=== PATIENT | female | born 1955 | race Caucasian/White ===

== ENCOUNTER 2019-03-17 13:48 | Inpatient (IN) ==
[2019-03-17] MEDS ORDERED: Ipratropium/Albuterol Neb 3 ML ONE ×2 (14:11→14:13)
[2019-03-17] MEDS ORDERED: Ipratropium/Albuterol Neb 3 ML IH ONE (14:11)
[2019-03-17] MEDS ORDERED: methylPREDNISolone 125 MG/2 ML VIAL IVP ONE (14:11)
[2019-03-17] MEDS ORDERED: Isovue-370 500 ML BOTTLE IVP ONE (14:11)
--- NOTE | 2019-03-17 14:22 | Emergency Department Note ---
Disposition Clinical Impression: Hypokalemia, Hypomagnesemia, Acute exacerbation of chronic obstructive airways disease Disposition: Admitted As Inpatient Condition: Fair Referrals: Remedios Sullivan [Primary Care Provider] - Forms: ED Satisfaction Letter Time of Disposition: 18:46 SOB HPI - General Chief Complaint: ED Shortness of Breath/Dyspnea Stated Complaint: VIRI Time Seen by Provider: 03/17/19 14:05 Source: patient Mode of arrival: ambulatory Limitations: no limitations Nursing Notes Reviewed: Yes Vital Signs Reviewed: Yes - History of Present Illness 64-year-old female presented to the emergency department with shortness of breath. She has no chest pain. Says shortness breath been going on for approximately 5 days. Was seen by her primary care doctor in approximately 5 days ago started on clarithromycin and 7 day course of 60 mg prednisone. Says she has take every pill as well as she has nebulous her home she is been doing about every 6-8 hours. Says she continues neck it better she is not noted any fears of difficulty breathing is getting worse. She does have history of COPD has never had be intubated. She has no history of cardiac problems. She has never had any blood clots further been no recent surgeries or unilateral leg swelling no long car rides or plane rides. She said she was at one time diagnosed with pulmonary nodules but they said they are not cancer is otherwise has no cancer history. No nausea or vomiting headache blurry vision or any other complete a this time. She has no abdominal pain - Related Data Allergies Allergy/AdvReac Type Severity Reaction Status Date / Time hydrocodone Allergy Mild Rash/Itchin Verified 03/17/19 15:14 g All systems ED: reviewed and negative except as stated. Review of Systems: As Per HPI Past Medical History - Past Medical History Attestation: Yes The following information was validated with the patient. Source: patient Medical history: Reports: COPD Surgical history: Reports: cholecystectomy, orthopedic, other (Kyaw placement in her left arm), other (Tubal ligation) Psychiatric history: Reports: no psych history GUIDANCE DIRECTOR history: Reports: bilateral tubal ligation - Social History Smoking Status: Current every day smoker Smokeless Tobacco Status: No Alcohol use: Reports: none Drug use: Reports: none Physical Exam - General Limitations: no limitations General appearance: alert, in no apparent distress - Head Head exam: atraumatic, normocephalic, normal inspection - Eye Eye exam: Present: normal appearance, PERRL, EOMI - ENT ENT exam: normal exam, normal oropharynx, mucous membranes moist - Neck Neck exam: Present: normal inspection, full ROM, trachea midline - Chest Chest inspection: Present: normal inspection, symmetric chest wall rise - Respiratory Respiratory exam: Present: respiratory distress (Mild), wheezes (Expiratory bilaterally), accessory muscle use. Absent: stridor, prolonged expiratory phase - Cardiovascular Cardiovascular exam: Present: regular rate, normal rhythm, normal heart sounds - Abdominal Exam Abdominal exam: Present: soft, Non-Tender, normal bowel sounds. Absent: tenderness, distention, guarding, rebound, rigidity - Extremities Exam Extremities exam: Present: normal inspection, full ROM. Absent: tenderness, pedal edema - Neurological Exam Neurological exam: Present: alert, oriented X3 - Skin Skin exam: Present: warm, dry, intact, normal color Course Course Narrative: Patient does have a story wheezes on exam. We will give patient triple DuoNeb treatment as well as give her dose of Solu-Medrol here. We will get basic labs and imaging CBC BMP troponin lactate. We will get chest x-ray. we will get a CT angiogram of chest like cannot rule out pulmonary and was not this time due to her having continued shortness of breath still after receiving 5 days of clarithromycin 5 days of steroids. She has of history COPD I do think this most likely is a COPD exacerbation has failed outpatient treatment. Patient most likely will be admitted for further evaluation. Vital Signs Temperature 98.6 F 03/17/19 13:56 Pulse Rate 70 03/17/19 13:56 Respiratory Rate 26 03/17/19 13:56 Blood Pressure 159/78 03/17/19 13:56 O2 Sat by Pulse Oximetry 95 03/17/19 13:56 Temperature 98.6 F 03/17/19 15:11 Pulse Rate 73 03/17/19 15:11 Respiratory Rate 18 03/17/19 15:11 Blood Pressure 131/99 03/17/19 15:11 O2 Sat by Pulse Oximetry 98 03/17/19 15:11 Oxygen Delivery Oxygen Delivery Nasal Cannula Shortness of Breath/Dyspnea - MDM Narrative Medical decision making narrative: 64-year-old female presents here shortness of breath. Did give her DuoNeb treatment she arrived. Also gave her Solu-Medrol. She has been on clarithromycin for 5 days and taken every single pill and not missed any doses. She has been on's also on 5 days of steroids with no relief. Labs came back showing a hypokalemia EKG had no acute changes. There is no signs of T-wave changes. I did give patient 60 mEq of potassium oral and also ordered a 40 mEq K rider as well. This could be artificially low as they did draw blood directly after giving the albuterol treatments. Patient also most likely is a low magnesium so we will give her to grams of magnesium as well. Patient had elevated lactic acidosis as well as a leukocytosis. Think a leukocytosis most likely secondary to the steroid treatment she is arty been on antibiotics. Patient is never had a fever or been tachycardic while here. I did a CT angiogram chest had no acute findings. Chest x-ray also showed no signs of pneumonia. I spoke with the hospitalist and we agree that no further antibody treatment is needed at this time she is arty done clarithromycin and even the white count is elevated most likely secondary to steroids and not secondary to a n infection. Patient will be admitted to the hospitalist. They want me to first get the potassium mildly more elevated to around 3 and they are okay to accept the patient that time. Repeat potassium was 2.2. I spoke with the double head machine operator Dr. Ortez who likes her plan of treatment potassium said they will continue to follow it. She again has no EKG changes. Lactate was continually elevated so ordered a second liter of fluids. Patient is stable at this time. Spoke with the hospitalist Dr. Gallardo who agreed to admit the patient to their service. Patient's admitted in stable condition Chest X-Ray 03/17/19 14:11 IMPRESSION: Nonspecific mild left lower lobe subsegmental opacity which may represent atelectasis. No finding to suggest pneumonia. D/ / 03/17/2019 14:55:38 Antoine Ann MD / yunior Interpreting Provider: Antoine Ann MD Chest CTA 03/17/19 14:12 IMPRESSION: 1. No evidence of pulmonary embolism 2. Bibasilar atelectasis 3. Old granulomatous disease D/ / Ger Gage MD / Ger Gage MD Interpreting Provider: Ger Gage MD - Medical Records Medical records reviewed: Yes I reviewed the patient's medical records. - Lab Data Lab results reviewed: Yes I reviewed the patient's lab results. Result diagrams: 03/17/19 14:24 03/17/19 16:51 Lab Results 03/17/19 03/17/19 03/17/19 Range/Units 14:24 14:24 14:24 WBC 24.0 H (4.3-11.1) K/mcL RBC 4.72 (3.82-4.97) M/mcL Hgb 14.0 (11.5-15.4) g/dL Hct 41.0 (35.3-44.9) % MCV 86.9 (83.0-100.0) fL MCH 29.7 (28.0-33.3) pg MCHC 34.1 (31.6-35.5) g/dL RDW 14.9 H (11.5-14.5) % Plt Count 422 H (140-400) K/mcL MPV 10.6 (9.4-12.4) fL Immature Gran % Test Not Performed Seg Neutrophils % 55.0 % Band Neutrophils % 3.0 (0-4) % Lymphocytes % 37.0 % Monocytes % 4.0 % Eosinophils % Test Not Performed Basophils % Test Not Performed Metamyelocytes % 1.0 H (0) % Neutrophils # 13.9 H (1.6-8.9) K/mcL Lymphocytes # 8.9 H (0.6-4.6) K/mcL Monocytes # 1.0 (0.0-1.3) K/mcL Eosinophils # Test Not Performed Basophils # Test Not Performed Nucleated RBCs/100 WBC 0.2 H (0) /100 WBC Smudge Cells Present A (Not Present) Platelet Estimate Slight increase H (Normal) Sodium 142 (136-145) mEq/L Potassium 2.0 L* (3.5-5.1) mEq/L Chloride 101 (98-107) mEq/L Carbon Dioxide 29 (23-29) mEq/L BUN 15 (8-23) mg/dL Creatinine 0.82 (0.60-1.20) mg/dL Est GFR ( Amer) > 60 (> 60) Est GFR (Non-Af Amer) > 60 (> 60) BUN/Creatinine Ratio 18 (6-26) Glucose 78 (70-105) mg/dL Calculated Osmolality 294 (280-300) Lactic Acid 3.4 H (0.5-2.2) mmol/L Calcium 8.9 (8.6-10.3) mg/dL Magnesium 1.8 (1.6-2.6) mg/dL Troponin I 0.03 (< 0.04) ng/mL B-Natriuretic Peptide (Less than 100) pg/mL Urine Color (Yellow) Urine Clarity (Clear) Urine pH (5.0-8.0) pH Units Ur Specific Outlook (1.010-1.025) Urine Protein (Neg-Trace) mg/dL Urine Glucose (UA) (Normal) mg/dL Urine Ketones (Negative) mg/dL Urine Blood (Negative) Urine Nitrite (Negative) Urine Bilirubin (Negative) Urine Urobilinogen (Normal) mg/dL Ur Leukocyte Esterase (Negative) Ur Culture Indicated? (NO) 03/17/19 03/17/19 03/17/19 Range/Units 14:24 16:24 16:51 WBC (4.3-11.1) K/mcL RBC (3.82-4.97) M/mcL Hgb (11.5-15.4) g/dL Hct (35.3-44.9) % MCV (83.0-100.0) fL MCH (28.0-33.3) pg MCHC (31.6-35.5) g/dL RDW (11.5-14.5) % Plt Count (140-400) K/mcL MPV (9.4-12.4) fL Immature Gran % Seg Neutrophils % % Band Neutrophils % (0-4) % Lymphocytes % % Monocytes % % Eosinophils % Basophils % Metamyelocytes % (0) % Neutrophils # (1.6-8.9) K/mcL Lymphocytes # (0.6-4.6) K/mcL Monocytes # (0.0-1.3) K/mcL Eosinophils # Basophils # Nucleated RBCs/100 WBC (0) /100 WBC Smudge Cells (Not Present) Platelet Estimate (Normal) Sodium (136-145) mEq/L Potassium 2.2 L* (3.5-5.1) mEq/L Chloride (98-107) mEq/L Carbon Dioxide (23-29) mEq/L BUN (8-23) mg/dL Creatinine (0.60-1.20) mg/dL Est GFR ( Amer) (> 60) Est GFR (Non-Af Amer) (> 60) BUN/Creatinine Ratio (6-26) Glucose (70-105) mg/dL Calculated Osmolality (280-300) Lactic Acid (0.5-2.2) mmol/L Calcium (8.6-10.3) mg/dL Magnesium (1.6-2.6) mg/dL Troponin I (< 0.04) ng/mL B-Natriuretic Peptide 69 (Less than 100) pg/mL Urine Color Yellow (Yellow) Urine Clarity Clear (Clear) Urine pH 6.5 (5.0-8.0) pH Units Ur Specific Outlook > 1.030 H (1.010-1.025) Urine Protein Negative (Neg-Trace) mg/dL Urine Glucose (UA) Normal (Normal) mg/dL Urine Ketones Negative (Negative) mg/dL Urine Blood Negative (Negative) Urine Nitrite Negative (Negative) Urine Bilirubin Negative (Negative) Urine Urobilinogen Normal (Normal) mg/dL Ur Leukocyte Esterase Negative (Negative) Ur Culture Indicated? NO (NO) 03/17/19 Range/Units 18:10 WBC (4.3-11.1) K/mcL RBC (3.82-4.97) M/mcL Hgb (11.5-15.4) g/dL Hct (35.3-44.9) % MCV (83.0-100.0) fL MCH (28.0-33.3) pg MCHC (31.6-35.5) g/dL RDW (11.5-14.5) % Plt Count (140-400) K/mcL MPV (9.4-12.4) fL Immature Gran % Seg Neutrophils % % Band Neutrophils % (0-4) % Lymphocytes % % Monocytes % % Eosinophils % Basophils % Metamyelocytes % (0) % Neutrophils # (1.6-8.9) K/mcL Lymphocytes # (0.6-4.6) K/mcL Monocytes # (0.0-1.3) K/mcL Eosinophils # Basophils # Nucleated RBCs/100 WBC (0) /100 WBC Smudge Cells (Not Present) Platelet Estimate (Normal) Sodium (136-145) mEq/L Potassium (3.5-5.1) mEq/L Chloride (98-107) mEq/L Carbon Dioxide (23-29) mEq/L BUN (8-23) mg/dL Creatinine (0.60-1.20) mg/dL Est GFR ( Amer) (> 60) Est GFR (Non-Af Amer) (> 60) BUN/Creatinine Ratio (6-26) Glucose (70-105) mg/dL Calculated Osmolality (280-300) Lactic Acid 4.6 H* (0.5-2.2) mmol/L Calcium (8.6-10.3) mg/dL Magnesium (1.6-2.6) mg/dL Troponin I (< 0.04) ng/mL B-Natriuretic Peptide (Less than 100) pg/mL Urine Color (Yellow) Urine Clarity (Clear) Urine pH (5.0-8.0) pH Units Ur Specific Outlook (1.010-1.025) Urine Protein (Neg-Trace) mg/dL Urine Glucose (UA) (Normal) mg/dL Urine Ketones (Negative) mg/dL Urine Blood (Negative) Urine Nitrite (Negative) Urine Bilirubin (Negative) Urine Urobilinogen (Normal) mg/dL Ur Leukocyte Esterase (Negative) Ur Culture Indicated? (NO) - Radiology Data Radiology results reviewed: Yes I reviewed the patient's radiology results. - EKG Data EKG attestation: Yes I reviewed and interpreted this EKG. EKG results narrative: EKG done at 1405 review myself and attending shows sinus rhythm at a rate 65, FL 152, QRS 14, QTc 46. Is no acute ST changes no acute T-wave changes no signs of ischemia. There are T-wave depressions in lead 2 and aVF but there is no reciprocal changes. This could just be secondary to old changes. No signs of hypertrophy, heart strain, heart block. No WPW/Brugada/HOCM. No changes based on old EKG done 07/06/14
[2019-03-17 14:47] LABS: Mean Corpuscular HGB Conc 34.1 g/dL (31.6-35.5); Mean Corpuscular Hemoglobin 29.7 pg (28.0-33.3); Mean Corpuscular Volume 86.9 fL (83.0-100.0); Mean Platelet Volume 10.6 fL (9.4-12.4); Nucleated Red Blood Cells 0.2 /100 WBC (0); Platelet Count 422 K/mcL (140-400); Red Blood Count 4.72 M/mcL (3.82-4.97); Red Cell Distribution Width 14.9 % (11.5-14.5)
[2019-03-17] MEDS ORDERED: Ondansetron 4 MG/2 ML VIAL IVP ONE (15:22)
[2019-03-17 15:23] LABS: BUN/Creatinine Ratio 18 (6-26); Blood Urea Nitrogen 15 mg/dL (8-23); Calcium 8.9 mg/dL (8.6-10.3); Carbon Dioxide 29 mEq/L (23-29); Chloride 101 mEq/L (98-107); Glucose 78 mg/dL (70-105); Osmolality,Calculated 294 (280-300); Sodium 142 mEq/L (136-145); eGFR For African Americans > 60 (> 60); eGFR For Non-African Americans > 60 (> 60)
[2019-03-17] MEDS ORDERED: 0.9 % Sodium Chloride 1,000 ML IVC ONE ×2 (15:23→20:32)
[2019-03-17 15:24] LABS: Lymphocytes # 8.9 K/mcL (0.6-4.6); Neutrophils # 13.9 K/mcL (1.6-8.9); Smudge Cells Present (Not Present); Troponin I 0.03 ng/mL (< 0.04)
[2019-03-17] MEDS ORDERED: Potassium Chloride Elixir 20 MEQ/15 ML UDC PO ONE ×2 (15:33→16:14)
[2019-03-17 15:58] LABS: Magnesium 1.8 mg/dL (1.6-2.6)
[2019-03-17 16:38] LABS: Bilirubin,Urine Negative (Negative); Blood,Urine Negative (Negative); Clarity,Urine Clear (Clear); Color,Urine Yellow (Yellow); Glucose,Urine (UA) Normal (Normal); Ketones,Urine Negative (Negative); Leukocyte Esterase,Urine Negative (Negative); Nitrite,Urine Negative (Negative); PH,Urine 6.5 pH Units (5.0-8.0); Protein,Urine Negative (Neg-Trace); Specific Gravity,Urine > 1.030 (1.010-1.025); Urobilinogen,Urine Normal (Normal)
--- NOTE | 2019-03-17 16:57 | Emergency Department Note ---
Disposition Clinical Impression: Hypokalemia, Hypomagnesemia, Acute exacerbation of chronic obstructive airways disease Disposition: Admitted As Inpatient Condition: Fair Time of Disposition: 18:46 General Adult HPI - General Chief complaint: ED Shortness of Breath/Dyspnea Stated complaint: VIRI Time Seen by Provider: 03/17/19 14:05 Source: patient Mode of arrival: ambulatory Limitations: no limitations - History of Present Illness Pain Scale: 6 - Related Data Allergies Allergy/AdvReac Type Severity Reaction Status Date / Time hydrocodone Allergy Mild Rash/Itchin Verified 03/17/19 15:14 g Past Medical History - Past Medical History Medical history: Reports: COPD Surgical history: Reports: cholecystectomy, orthopedic, other (Kyaw placement in her left arm), other (Tubal ligation) Psychiatric history: Reports: no psych history UROLOGIST history: Reports: bilateral tubal ligation - Social History Smoking Status: Current every day smoker Smokeless Tobacco Status: No Alcohol use: Reports: none Drug use: Reports: none Physical Exam - General Limitations: no limitations General appearance: alert, in no apparent distress Course Vital Signs Temperature 98.6 F 03/17/19 13:56 Pulse Rate 70 03/17/19 13:56 Respiratory Rate 26 03/17/19 13:56 Blood Pressure 159/78 03/17/19 13:56 O2 Sat by Pulse Oximetry 95 03/17/19 13:56 Temperature 98.6 F 03/17/19 15:11 Pulse Rate 66 03/17/19 19:01 Respiratory Rate 22 03/17/19 19:01 Blood Pressure 151/79 03/17/19 19:01 O2 Sat by Pulse Oximetry 93 03/17/19 19:01 Oxygen Delivery Oxygen Delivery Room Air Medical Decision Making - Lab Data Result diagrams: 03/17/19 14:24 03/17/19 18:10 Lab Results 03/17/19 03/17/19 03/17/19 Range/Units 14:24 14:24 14:24 WBC 24.0 H (4.3-11.1) K/mcL RBC 4.72 (3.82-4.97) M/mcL Hgb 14.0 (11.5-15.4) g/dL Hct 41.0 (35.3-44.9) % MCV 86.9 (83.0-100.0) fL MCH 29.7 (28.0-33.3) pg MCHC 34.1 (31.6-35.5) g/dL RDW 14.9 H (11.5-14.5) % Plt Count 422 H (140-400) K/mcL MPV 10.6 (9.4-12.4) fL Immature Gran % Test Not Performed Seg Neutrophils % 55.0 % Band Neutrophils % 3.0 (0-4) % Lymphocytes % 37.0 % Monocytes % 4.0 % Eosinophils % Test Not Performed Basophils % Test Not Performed Metamyelocytes % 1.0 H (0) % Neutrophils # 13.9 H (1.6-8.9) K/mcL Lymphocytes # 8.9 H (0.6-4.6) K/mcL Monocytes # 1.0 (0.0-1.3) K/mcL Eosinophils # Test Not Performed Basophils # Test Not Performed Nucleated RBCs/100 WBC 0.2 H (0) /100 WBC Smudge Cells Present A (Not Present) Platelet Estimate Slight increase H (Normal) Sodium 142 (136-145) mEq/L Potassium 2.0 L* (3.5-5.1) mEq/L Chloride 101 (98-107) mEq/L Carbon Dioxide 29 (23-29) mEq/L BUN 15 (8-23) mg/dL Creatinine 0.82 (0.60-1.20) mg/dL Est GFR ( Amer) > 60 (> 60) Est GFR (Non-Af Amer) > 60 (> 60) BUN/Creatinine Ratio 18 (6-26) Glucose 78 (70-105) mg/dL Calculated Osmolality 294 (280-300) Lactic Acid 3.4 H (0.5-2.2) mmol/L Calcium 8.9 (8.6-10.3) mg/dL Magnesium 1.8 (1.6-2.6) mg/dL Troponin I 0.03 (< 0.04) ng/mL B-Natriuretic Peptide (Less than 100) pg/mL Urine Color (Yellow) Urine Clarity (Clear) Urine pH (5.0-8.0) pH Units Ur Specific Starlight (1.010-1.025) Urine Protein (Neg-Trace) mg/dL Urine Glucose (UA) (Normal) mg/dL Urine Ketones (Negative) mg/dL Urine Blood (Negative) Urine Nitrite (Negative) Urine Bilirubin (Negative) Urine Urobilinogen (Normal) mg/dL Ur Leukocyte Esterase (Negative) Ur Culture Indicated? (NO) 03/17/19 03/17/19 03/17/19 Range/Units 14:24 16:24 16:51 WBC (4.3-11.1) K/mcL RBC (3.82-4.97) M/mcL Hgb (11.5-15.4) g/dL Hct (35.3-44.9) % MCV (83.0-100.0) fL MCH (28.0-33.3) pg MCHC (31.6-35.5) g/dL RDW (11.5-14.5) % Plt Count (140-400) K/mcL MPV (9.4-12.4) fL Immature Gran % Seg Neutrophils % % Band Neutrophils % (0-4) % Lymphocytes % % Monocytes % % Eosinophils % Basophils % Metamyelocytes % (0) % Neutrophils # (1.6-8.9) K/mcL Lymphocytes # (0.6-4.6) K/mcL Monocytes # (0.0-1.3) K/mcL Eosinophils # Basophils # Nucleated RBCs/100 WBC (0) /100 WBC Smudge Cells (Not Present) Platelet Estimate (Normal) Sodium (136-145) mEq/L Potassium 2.2 L* (3.5-5.1) mEq/L Chloride (98-107) mEq/L Carbon Dioxide (23-29) mEq/L BUN (8-23) mg/dL Creatinine (0.60-1.20) mg/dL Est GFR ( Amer) (> 60) Est GFR (Non-Af Amer) (> 60) BUN/Creatinine Ratio (6-26) Glucose (70-105) mg/dL Calculated Osmolality (280-300) Lactic Acid (0.5-2.2) mmol/L Calcium (8.6-10.3) mg/dL Magnesium (1.6-2.6) mg/dL Troponin I (< 0.04) ng/mL B-Natriuretic Peptide 69 (Less than 100) pg/mL Urine Color Yellow (Yellow) Urine Clarity Clear (Clear) Urine pH 6.5 (5.0-8.0) pH Units Ur Specific Starlight > 1.030 H (1.010-1.025) Urine Protein Negative (Neg-Trace) mg/dL Urine Glucose (UA) Normal (Normal) mg/dL Urine Ketones Negative (Negative) mg/dL Urine Blood Negative (Negative) Urine Nitrite Negative (Negative) Urine Bilirubin Negative (Negative) Urine Urobilinogen Normal (Normal) mg/dL Ur Leukocyte Esterase Negative (Negative) Ur Culture Indicated? NO (NO) 03/17/19 03/17/19 Range/Units 18:10 18:10 WBC (4.3-11.1) K/mcL RBC (3.82-4.97) M/mcL Hgb (11.5-15.4) g/dL Hct (35.3-44.9) % MCV (83.0-100.0) fL MCH (28.0-33.3) pg MCHC (31.6-35.5) g/dL RDW (11.5-14.5) % Plt Count (140-400) K/mcL MPV (9.4-12.4) fL Immature Gran % Seg Neutrophils % % Band Neutrophils % (0-4) % Lymphocytes % % Monocytes % % Eosinophils % Basophils % Metamyelocytes % (0) % Neutrophils # (1.6-8.9) K/mcL Lymphocytes # (0.6-4.6) K/mcL Monocytes # (0.0-1.3) K/mcL Eosinophils # Basophils # Nucleated RBCs/100 WBC (0) /100 WBC Smudge Cells (Not Present) Platelet Estimate (Normal) Sodium (136-145) mEq/L Potassium 2.5 L* (3.5-5.1) mEq/L Chloride (98-107) mEq/L Carbon Dioxide (23-29) mEq/L BUN (8-23) mg/dL Creatinine (0.60-1.20) mg/dL Est GFR ( Amer) (> 60) Est GFR (Non-Af Amer) (> 60) BUN/Creatinine Ratio (6-26) Glucose (70-105) mg/dL Calculated Osmolality (280-300) Lactic Acid 4.6 H* (0.5-2.2) mmol/L Calcium (8.6-10.3) mg/dL Magnesium (1.6-2.6) mg/dL Troponin I (< 0.04) ng/mL B-Natriuretic Peptide (Less than 100) pg/mL Urine Color (Yellow) Urine Clarity (Clear) Urine pH (5.0-8.0) pH Units Ur Specific Starlight (1.010-1.025) Urine Protein (Neg-Trace) mg/dL Urine Glucose (UA) (Normal) mg/dL Urine Ketones (Negative) mg/dL Urine Blood (Negative) Urine Nitrite (Negative) Urine Bilirubin (Negative) Urine Urobilinogen (Normal) mg/dL Ur Leukocyte Esterase (Negative) Ur Culture Indicated? (NO) Attestation Statement - Attestation Attestation: I examined this patient and my medical decision-making was reviewed with the Resident Physician. I agree with the documented findings, disposition and treatment plan as described except to the extent set forth below. Patient 64-year-old female that presents to the emergency department with chief complaint of shortness of breath. The patient reports that she has recently been treated with steroids and breathing treatment Physical exam patient is awake alert moderately difficulty breathing in exam Patient was found to be probably hypokalemic although the patient had just received albuterol duo nebs. The patient was receiving potassium supplementation in the ER the patient was found not to have any focal infiltrate on her chest x-ray case was discussed with the hospitalist the patient be admitted to the hospital.
[2019-03-17] MEDS ORDERED: Ondansetron ODT 4 MG TAB.RAPDIS SL PRN (20:49)
[2019-03-17] MEDS ORDERED: Naloxone 0.4 MG/ML INJ IVP PRN (20:49)
--- NOTE | 2019-03-17 20:49 | Internal Med History&Physical ---
<Kerry Jackson - Last Filed: 03/17/19 21:18> Date of Encounter: 03/17/19 Time of Encounter: 20:49 Internal Medicine - H&P: HPI Chief complaint: Shortness of breath Admitted From: Emergency Dept Plans for Post Hospital Care: Home History of present illness: Ms. Banks is a 64 year old female with past medical history of COPD, tobacco use who presented to [facility] ED complaining of shortness of breath. Upon my examination the patient she reported that about 2 weeks ago she started developing shortness of breath and coughing with white sputum production. It continued to progress so she went to urgent care on last week and was given clarithromycin 500 mg b.i.d. for 10 days, prednisone 20 mg TID for 7 days, albuterol inhaler. She still has 3 days left of the clarithromycin to take however she felt like she was not getting any better so she called urgent care and they recommended she go to the ED. Additionally she noted subjective fevers, chills, chest pressure from the shortness of breath and trying to take a deep breath, and nausea. She reported her shortness of breath had increased the point that she become short of breath upon walking from the bathroom to the living room. She was using her albuterol inhaler 4 times daily which improved the SOB. She denied chest pains, vomiting, abdominal pain, hemoptysis. She is a current smoker of one pack per day/ 45 years. She continued to smoke while being short of breath and did not decrease her smoking while sick. She denied recent hospitalizations, sick contacts. She has no hospitalizations for pneumonia or COPD exacerbation. The last time she had an episode similar to this was years ago when her had . She is not oxygen and does not follow with a primary care provider. She denied drug and alcohol use. She is a family history of grandmother dying of lung cancer. She is a full code. In the ED initial vitals were temperature 98.6, HR 70, RR 26, BP 159/78, SpO2 95. WBC 24, hemoglobin 14, platelets 422, sodium 142, potassium 2, lactic acid 3.4, BNP 69, troponin 0.03, magnesium 1.8. Urinalysis unremarkable. - Chest x-ray showing left lower lobe atelectasis. - Chest CTA demonstrating old granulomatous disease. - EKG showing HR 65, no ST or T wave changes indicating ischemia. No U wave present. - In the ED the patient was given a leader of IV fluids, 2 g magnesium, 40 mg IV potassium, 60 mg PO potassium, Solu-Medrol 125 mg. Blood cultures were taken. Past Med Surg Social Fam HX - Past Medical History Attestation: Yes The following information was validated with the patient. Source: patient Medical history: COPD Additional medical history: lung nodules Psychiatric history: no psych history - Past Surgical History Surgical History: cholecystectomy, orthopedic, other (Kyaw placement in her left arm), other (Tubal ligation) Additional surgical history: LT WRIST SURGERY, tubal ligation, colonoscopy, EGD - Social History Smoking Status: Current every day smoker Smokeless Tobacco Status: No Alcohol use: none Drug use: none - Family History Mother Living Status: Grandmother Hx Family Cancer: Yes (Lung cancer) Internal Medicine - H&P: Meds Allergy/AdvReac Type Severity Reaction Status Date / Time hydrocodone Allergy Mild Rash/Itchin Verified 03/17/19 15:14 g All Systems PM: A 10-system review of systems was performed and is negative for pertinent findings except as documented above in the HPI. - Constitutional Constitutional: chills, fever(s) - Cardiovascular Cardiovascular ROS IM: chest pain (Pressure), dyspnea on exertion, no palpitations - Respiratory Respiratory: cough, dyspnea, dyspnea on exertion, wheezing, change in phlegm color, no hemoptysis - Gastrointestinal Gastrointestinal: nausea, no abdominal pain, no vomiting - Musculoskeletal Musculoskeletal ROS IM: no limited range of motion, no muscle cramps - Integumentary Integumentary IM: no erythema, no rash - Neurological Neurological ROS: no dizziness - Hematologic/Lymphatic Hematologic/Lymphatic: no easy bleeding - Constitutional Vitals: Temp Pulse Resp BP Pulse Ox 98.6 F 66 22 151/79 93 03/17/19 15:11 03/17/19 19:01 03/17/19 19:01 03/17/19 19:01 03/17/19 19:01 Exam: Gen.: Vitals noted. No acute distress. AAOx3 HEENT: oropharynx clear, Normocephalic, atraumatic Neck: Supple. No adenopathy. Cardiac: RRR, no murmur, +S1/S2 Pulmonary: bilaterally mild wheezes, no rales or rhonchi, equal chest expansion Abdomen: soft, nontender, Bowel sounds noted, no guarding MSK: no joint swelling noted Extremities: no BLE edema, nontender calf, no cyanosis or clubbing Neuro: A&Ox3, moves all extremities, no focal deficits Psych: Appropriate mood and behavior Internal Med - H&P Results - Labs CBC & Chem 7: 03/17/19 14:24 03/17/19 18:10 Labs: Short CBC 03/17/19 Range/Units 14:24 WBC 24.0 H (4.3-11.1) K/mcL Hgb 14.0 (11.5-15.4) g/dL Hct 41.0 (35.3-44.9) % Plt Count 422 H (140-400) K/mcL Neutrophils # 13.9 H (1.6-8.9) K/mcL BMP 03/17/19 03/17/19 03/17/19 14:24 16:51 18:10 Sodium 142 Potassium 2.0 L* 2.2 L* 2.5 L* Chloride 101 Carbon Dioxide 29 BUN 15 Creatinine 0.82 Glucose 78 Calcium 8.9 Cardiac Enzymes 03/17/19 Range/Units 14:24 Troponin I 0.03 (< 0.04) ng/mL Urine 03/17/19 Range/Units 16:24 Urine Color Yellow (Yellow) Urine Clarity Clear (Clear) Urine pH 6.5 (5.0-8.0) pH Units Ur Specific [place] > 1.030 H (1.010-1.025) Urine Protein Negative (Neg-Trace) mg/dL Urine Glucose (UA) Normal (Normal) mg/dL - Impressions ITS Impressions Chest X-Ray 03/17/19 14:11 IMPRESSION: Nonspecific mild left lower lobe subsegmental opacity which may represent atelectasis. No finding to suggest pneumonia. D/ / 03/17/2019 14:55:38 Antoine Ann MD / [email or web address] Interpreting Provider: Antoine Ann MD Chest CTA 03/17/19 14:12 IMPRESSION: 1. No evidence of pulmonary embolism 2. Bibasilar atelectasis 3. Old granulomatous disease D/ / Ger Gage MD / Ger Gage MD Interpreting Provider: Ger Gage MD - Assessment and Plan (1) Acute exacerbation of chronic obstructive airways disease Current Visit: Yes Status: Acute Assessment and plan: Patient with acute exacerbation of COPD. She has received clarithromycin 500 mg b.i.d. and prednisone 20 mg TID for approximately 7 days outpatient from an urgent care. She has already completed treatment for COPD exacerbation, however the patient continued to smoke one pack per day which is likely the reason why she presented feeling unimproved with continued dyspnea. She had subjective fevers and chills. However, she has no fevers documented to admission. Imaging shows no evidence of acute infection such as pneumonia. Suspect that she will likely need a prolonged steroid taper and proper treatment of her COPD with daily inhalers she does not take anything for her COPD. She was counseled on smoking cessation. - Afebrile, hemodynamically stable - Chest x-ray showing left lower lobe atelectasis. - Chest CTA demonstrating old granulomatous disease. - Online examination she had diffuse bilateral mild wheezing more so on the right lung airspace. No accessory muscle use. No rhonchi or rales. Plan - will continue methylprednisolone 40 mg IV daily to anticipate a prolonged s teroid taper - order Tessilon pearls - ordered Symbicort daily - continue duonebs scheduled - supplemental oxygen as needed - continue pulse oximetry monitoring - she will need follow-up to establish with a new PCP as she does not have one. (2) Hypokalemia Current Visit: Yes Status: Acute Assessment and plan: Hypokalemia on admission with potassium of 2. Patient was given 40 mg IV potassium and 60 mg PO potassium in ED along with 2gram magnesium. - The hypokalemia is suspected to be secondary to that she is chronically mildly hypokalemic with potassium around 3.1 and likely worsened by her taking albuterol inhaler at least 4 times daily for about a week now that we suspect is likely contributing to her hyperkalemia. - potassium currently 2.5 - magnesium 1.8 - EKG showing HR 65, no ST or T wave changes indicating ischemia. No U wave present. Plan - recheck potassium now - continue to monitor potassium and recheck with morning labs - continue cardiac telemetry (3) Leukocytosis Current Visit: No Status: Resolved Assessment and plan: On admission patient presented with a leukocytosis with WBC 24 - suspect that this is likely secondary to the patient receiving 60 mg of prednisone daily for the past week. She has been afebrile since admission. She has also completed treatment with clarithromycin for 7 days thus far for acute COPD exacerbation at an urgent care. No evidence of infection on CTA chest, chest x-ray, urinalysis. No obvious source of infection. - Blood cultures pending -Will continue to monitor. Qualifiers: Leukocytosis type: unspecified Qualified Code(s): D72.829 - Elevated white blood cell count, unspecified (4) Tobacco abuse Current Visit: No Status: Chronic Assessment and plan: Current smoker of one pack per day/45 years. Order nicotine patch. Counseled on smoking cessation. (5) DVT prophylaxis Current Visit: Yes Status: Acute Assessment and plan: Heparin SQ (6) Lactic acidosis Current Visit: Yes Status: Acute Assessment and plan: At admission lactic acid 3.4 - suspect that this is an incidental finding as the patient is not clinically septic. She is afebrile, normotensive, no evidence of infection on chest CTA or chest x-ray. However, will continue to trend lactic acid and the patient has received 2 L of IV fluids. - lactic acid 4.6 now - will plan to repeat - Time Spent With Patient Total time spent is greater than 50% in coordination of care (as documented) at patient's floor/unit and/or counseling patient: <Rachna Mahan - Last Filed: 03/17/19 22:15> Date of Encounter: 03/17/19 All Systems PM: A 10-system review of systems was performed and is negative for pertinent findings except as documented above in the HPI. - Constitutional Vitals: Temp Pulse Resp BP Pulse Ox 98 F 67 20 148/73 95 03/17/19 21:26 03/17/19 21:26 03/17/19 21:26 03/17/19 21:26 03/17/19 21:26 Internal Med - H&P Results - Labs CBC & Chem 7: 03/17/19 14:24 03/17/19 18:10 Labs: Short CBC 03/17/19 Range/Units 14:24 WBC 24.0 H (4.3-11.1) K/mcL Hgb 14.0 (11.5-15.4) g/dL Hct 41.0 (35.3-44.9) % Plt Count 422 H (140-400) K/mcL Neutrophils # 13.9 H (1.6-8.9) K/mcL BMP 03/17/19 03/17/19 03/17/19 14:24 16:51 18:10 Sodium 142 Potassium 2.0 L* 2.2 L* 2.5 L* Chloride 101 Carbon Dioxide 29 BUN 15 Creatinine 0.82 Glucose 78 Calcium 8.9 Cardiac Enzymes 03/17/19 Range/Units 14:24 Troponin I 0.03 (< 0.04) ng/mL Urine 03/17/19 Range/Units 16:24 Urine Color Yellow (Yellow) Urine Clarity Clear (Clear) Urine pH 6.5 (5.0-8.0) pH Units Ur Specific Couch > 1.030 H (1.010-1.025) Urine Protein Negative (Neg-Trace) mg/dL Urine Glucose (UA) Normal (Normal) mg/dL - Impressions ITS Impressions Chest X-Ray 03/17/19 14:11 IMPRESSION: Nonspecific mild left lower lobe subsegmental opacity which may represent atelectasis. No finding to suggest pneumonia. D/ / 03/17/2019 14:55:38 Antoine Ann MD / [email or web address] Interpreting Provider: Antoine Ann MD Chest CTA 03/17/19 14:12 IMPRESSION: 1. No evidence of pulmonary embolism 2. Bibasilar atelectasis 3. Old granulomatous disease D/ / Ger Gage MD / Ger Gage MD Interpreting Provider: Ger Gage MD - Assessment and Plan (1) Leukocytosis Current Visit: No Status: Resolved Qualifiers: Leukocytosis type: unspecified Qualified Code(s): D72.829 - Elevated white blood cell count, unspecified (2) Tobacco abuse Current Visit: No Status: Chronic (3) Hypokalemia Current Visit: Yes Status: Acute (4) Acute exacerbation of chronic obstructive airways disease Current Visit: Yes Status: Acute (5) DVT prophylaxis Current Visit: Yes Status: Acute (6) Lactic acidosis Current Visit: Yes Status: Acute - Time Spent With Patient Total time spent is greater than 50% in coordination of care (as documented) at patient's floor/unit and/or counseling patient: - Attending Attestation I performed a history and physical exam of the patient and discussed management with the resident. I reviewed the resident's note and agree with the documented findings and plan of care. Martha Banks is a 64 year old woman, active smoker with a pack a day history for 45 years who presents with increasing shortness of breath for the past 2 weeks for which she was given a course of oral steroids and clarithromycin for 7 to 10 days but her dyspnea persists. She has been using the inhaler prescribed about 4 times a day but continues to smoke incessantly. She has notable expiratory wheezing on exam and seemed to be in mild distress. No cyanosis or use of accessory muscles noted however. CT scan reviewed by me reveals no focal consolidations concerning for pneumonia; there are lung nodules which are known by the patient and on my review have been present in CTs dating back to 2013. Labs showed severe hypokalemia. She has a prior tendency towards hypokalemia as noted on prior admissions and it is plausible that the ongoing albuterol therapy now may be worsened this. There are no signs of GI or urinary loss of potassium and she is not on any medications that could potentially cause this. Her lactic acid was also elevated on admission and we will continue to trend this after receiving fluids. Leukocytosis likely secondary to her current use of steroids. No signs of bacterial respiratory, gastrointestinal or skin/soft tissue infection. Will keep her on standing nebulizer therapy overnight with systemic steroids. YAYA FLOWERS.
[2019-03-17] MEDS ORDERED: Benzonatate 100 MG CAPSULE PO PRN (20:55)
[2019-03-17] MEDS: Nicotine 21 MG PATCH.TD24 TD SCH (21:51)
[2019-03-17] MEDS: *HR* Heparin 5,000 UNIT/ML VIAL SQ SCH (21:51)
[2019-03-17 22:32] LABS: BUN/Creatinine Ratio 18 (6-26); Blood Urea Nitrogen 14 mg/dL (8-23); Calcium 7.8 mg/dL (8.6-10.3); Carbon Dioxide 27 mEq/L (23-29); Chloride 101 mEq/L (98-107); Glucose 172 mg/dL (70-105); Osmolality,Calculated 299 (280-300); Potassium 2.5 mEq/L (3.5-5.1); Sodium 142 mEq/L (136-145); eGFR For African Americans > 60 (> 60); eGFR For Non-African Americans > 60 (> 60)
[2019-03-17] MEDS: Acetaminophen 325 MG TABLET PO PRN (23:28)
[2019-03-17] MEDS: Budesonide/Formoterol 160/4.5 1 PUFF INH IH SCH (23:40)
[2019-03-17] MEDS: Ipratropium/Albuterol Neb 3 ML IH SCH (23:41)
[2019-03-18] MEDS: Ipratropium/Albuterol Neb 3 ML IH SCH ×6 (04:02→23:51)
[2019-03-18 04:44] LABS: Basophils % 0.2 %; Eosinophils % 0.1 %; Hematocrit 36.5 % (35.3-44.9); Hemoglobin 12.3 g/dL (11.5-15.4); Immature Granulocytes % 3.8 % (0-4); Lymphocytes # 2.2 K/mcL (0.6-4.6); Lymphocytes % 14.5 %; Mean Corpuscular HGB Conc 33.7 g/dL (31.6-35.5); Mean Corpuscular Hemoglobin 29.9 pg (28.0-33.3); Mean Corpuscular Volume 88.6 fL (83.0-100.0); Mean Platelet Volume 10.3 fL (9.4-12.4); Monocytes # 0.5 K/mcL (0.0-1.3); Monocytes % 3.1 %; Neutrophils # 11.8 K/mcL (1.6-8.9); Platelet Count 343 K/mcL (140-400); Red Blood Count 4.12 M/mcL (3.82-4.97); Red Cell Distribution Width 15.1 % (11.5-14.5); Segmented Neutrophils % 78.3 %; White Blood Count 15.1 K/mcL (4.3-11.1)
[2019-03-18 05:02] LABS: BUN/Creatinine Ratio 16 (6-26); Blood Urea Nitrogen 11 mg/dL (8-23); Calcium 7.5 mg/dL (8.6-10.3); Carbon Dioxide 25 mEq/L (23-29); Chloride 102 mEq/L (98-107); Glucose 153 mg/dL (70-105); Magnesium 2.1 mg/dL (1.6-2.6); Osmolality,Calculated 292 (280-300); Potassium 2.6 mEq/L (3.5-5.1); Sodium 140 mEq/L (136-145); eGFR For African Americans > 60 (> 60); eGFR For Non-African Americans > 60 (> 60)
[2019-03-18] MEDS: *HR* Heparin 5,000 UNIT/ML VIAL SQ SCH ×3 (06:22→22:30)
[2019-03-18] MEDS ORDERED: Potassium Chloride 40 MEQ, Lidocaine 1% 2 ML in 0.9 % Sodium Chloride 500 ML IVPB ONE (06:26)
[2019-03-18 07:05] LABS: Potassium,Urine 20.9 mEq/L; Sodium, Urine 82.4 mEq/L
[2019-03-18 07:19] LABS: ABG Base Excess 6 mEq/L (-2 to 3); ABG HCO3 30 mEq/L (21-27); ABG Oxygen Saturation 97 % (95-98); ABG PCO2 41 mmHg (35-45); ABG PH 7.48 pH Units (7.32-7.45); ABG PO2 86 mmHg (85-104); ABG TCO2 31 mEq/L (20-26)
[2019-03-18] MEDS: Budesonide/Formoterol 160/4.5 1 PUFF INH IH SCH ×2 (07:20→19:42)
--- NOTE | 2019-03-18 07:54 | Electrocardiograph Report ---
[address] [address] Test Date: 2019-03-17 Pat Name: Martha Banks Department: EXAM2 Room: 2NE27 Gender: [place] Tender [place]: : 1955 Requested By: Trell Burton Order Number: [id number] Reading MD: Sharlene Negron Measurements Intervals [place] Rate: 65 P: 54 CA: 152 QRS: 26 QRSD: 104 T: 46 QT: 467 QTc: 486 Interpretive Statements Sinus rhythm Minimal ST depression, anterolateral leads Borderline prolonged QT interval Electronically Signed On 03-18-2019 7:53:06 EDT by Sharlene Negron
[2019-03-18] MEDS ORDERED: MethylPREDNISolone 40 MG/ML VIAL IVP SCH (09:00)
[2019-03-18] MEDS: Nicotine 21 MG PATCH.TD24 TD SCH (09:07)
[2019-03-18] MEDS: MethylPREDNISolone 40 MG/ML VIAL IVP SCH ×2 (09:08→17:47)
[2019-03-18] MEDS: Acetaminophen 325 MG TABLET PO PRN (11:38)
--- NOTE | 2019-03-18 11:57 | Internal Med Progress Note ---
Hospitalist Progress Note - Encounter Date of Encounter: 03/18/19 Time of Encounter: 09:00 - Subjective Interval History: She continues to have difficulty breathing but was able to be weaned off on oxygen. No fever overnight. Denies any chest pain, palpitation, orthopnea, PND, or leg swelling. - Exam Vitals: Temp Pulse Resp BP Pulse Ox 98.0 F 73 18 152/73 95 03/18/19 11:14 03/18/19 11:14 03/18/19 11:20 03/18/19 11:14 03/18/19 11:20 Exam: General: Alert and oriented, mild distress Cardiovascular:Normal S1 & S2, No JVD. Pulse regular. Lungs: Diffuse wheezing bilaterally Abdomen:Soft, non-tender, no rigidity. Extremities:No deformity or swelling Neurological:Normal cognition and motor skills. Non-focal - Assessment and Plan (1) Acute exacerbation of chronic obstructive airways disease Current Visit: Yes Status: Acute Assessment and Plan: Failed outpatient therapy on clarithromycin and steroid No evidence of pneumonia on lung imaging continue IV solumedrol and scheduled bronchodilator. Will add azithromycin for 5 days. Check respiratory viral panel. smoking cessation emphasized (2) Hypokalemia Current Visit: Yes Status: Acute Assessment and Plan: denies any diarrhea ? Renal loss urine potassium 20.9 which is not very impressive, no evidence of acidosis on BMP continue to replete and monitor (3) Lactic acidosis Current Visit: Yes Status: Acute Assessment and Plan: Unclear etiology, ? Hypoxia driven no signs of sepsis other than leukocytosis downtrending from 5.7-3.8, will continue to trend (4) Tobacco abuse Current Visit: No Status: Chronic Assessment and Plan: Nicotine replacement therapy (5) DVT prophylaxis Current Visit: Yes Status: Acute Assessment and Plan: Subcutaneous heparin - Time Spent with Patient Total time spent is greater than 50% in coordination of care (as documented) at patient's floor/unit and/or counseling patient: 25 - 35 minutes Plan of Care Discussed with: patient Internal Medicine: Result - Labs CBC & Chem 7: 03/18/19 04:28 03/18/19 04:28 Labs: Short CBC 03/17/19 03/18/19 Range/Units 14:24 04:28 WBC 24.0 H 15.1 H (4.3-11.1) K/mcL Hgb 14.0 12.3 D (11.5-15.4) g/dL Hct 41.0 36.5 (35.3-44.9) % Plt Count 422 H 343 (140-400) K/mcL Neutrophils # 13.9 H 11.8 H (1.6-8.9) K/mcL BMP 03/17/19 03/17/19 03/17/19 14:24 16:51 18:10 Sodium 142 Potassium 2.0 L* 2.2 L* 2.5 L* Chloride 101 Carbon Dioxide 29 BUN 15 Creatinine 0.82 Glucose 78 Calcium 8.9 03/17/19 03/18/19 22:01 04:28 Sodium 142 140 Potassium 2.5 L* 2.6 L Chloride 101 102 Carbon Dioxide 27 25 BUN 14 11 Creatinine 0.78 0.67 Glucose 172 H 153 H Calcium 7.8 L 7.5 L Cardiac Enzymes 03/17/19 Range/Units 14:24 Troponin I 0.03 (< 0.04) ng/mL Urine 03/17/19 Range/Units 16:24 Urine Color Yellow (Yellow) Urine Clarity Clear (Clear) Urine pH 6.5 (5.0-8.0) pH Units Ur Specific [place] > 1.030 H (1.010-1.025) Urine Protein Negative (Neg-Trace) mg/dL Urine Glucose (UA) Normal (Normal) mg/dL - ABG Interpretation ABG results: ABG ABG pH 7.48 pH Units (7.32-7.45) H 03/18/19 07:14 ABG pCO2 41 mmHg (35-45) 03/18/19 07:14 ABG pO2 86 mmHg (85-104) 03/18/19 07:14 ABG O2 Saturation 97 % (95-98) 03/18/19 07:14 - Impressions Impressions Chest X-Ray 03/17/19 14:11 IMPRESSION: Nonspecific mild left lower lobe subsegmental opacity which may represent atelectasis. No finding to suggest pneumonia. D/ / 03/17/2019 14:55:38 Antoine Ann MD / [email or web address] Interpreting Provider: Antoine Ann MD Chest CTA 03/17/19 14:12 IMPRESSION: 1. No evidence of pulmonary embolism 2. Bibasilar atelectasis 3. Old granulomatous disease D/ / Ger Gage MD / Ger Gage MD Interpreting Provider: Ger Gage MD Consult Discharge Plan - Plan Referrals: Remedios Sullivan [Primary Care Provider] -
[2019-03-18] MEDS ORDERED: hydrOXYzine pamoate 25 MG CAPSULE PO PRN (13:19)
[2019-03-18 15:29] LABS: BUN/Creatinine Ratio 18 (6-26); Blood Urea Nitrogen 13 mg/dL (8-23); Calcium 8.3 mg/dL (8.6-10.3); Carbon Dioxide 30 mEq/L (23-29); Chloride 101 mEq/L (98-107); Glucose 148 mg/dL (70-105); Osmolality,Calculated 295 (280-300); Potassium 2.8 mEq/L (3.5-5.1); Sodium 141 mEq/L (136-145); eGFR For African Americans > 60 (> 60); eGFR For Non-African Americans > 60 (> 60)
[2019-03-18] MEDS: Azithromycin 250 MG TABLET PO SCH (17:47)
[2019-03-18] MEDS ORDERED: Ketorolac 15 MG/ML VIAL IVP STA (18:04)
[2019-03-19] MEDS: Ipratropium/Albuterol Neb 3 ML IH SCH ×5 (03:56→19:46)
[2019-03-19] MEDS: *HR* Heparin 5,000 UNIT/ML VIAL SQ SCH ×3 (05:28→20:44)
[2019-03-19] MEDS: Ketorolac 15 MG/ML VIAL IVP PRN ×2 (05:29→20:41)
[2019-03-19 06:54] LABS: Basophils % 0.2 %; Hematocrit 38.9 % (35.3-44.9); Hemoglobin 12.7 g/dL (11.5-15.4); Immature Granulocytes % 4.5 % (0-4); Lymphocytes # 2.7 K/mcL (0.6-4.6); Lymphocytes % 11.3 %; Mean Corpuscular HGB Conc 32.6 g/dL (31.6-35.5); Mean Corpuscular Volume 91.7 fL (83.0-100.0); Mean Platelet Volume 10.6 fL (9.4-12.4); Monocytes # 1.4 K/mcL (0.0-1.3); Monocytes % 5.7 %; Nucleated Red Blood Cells 0.1 /100 WBC (0); Platelet Count 386 K/mcL (140-400); Red Blood Count 4.24 M/mcL (3.82-4.97); Red Cell Distribution Width 15.5 % (11.5-14.5); Segmented Neutrophils % 78.3 %
[2019-03-19 06:58] LABS: Basophils # 0.1 K/mcL (0.0-0.2); Neutrophils # 18.6 K/mcL (1.6-8.9); White Blood Count 23.8 K/mcL (4.3-11.1)
[2019-03-19 07:14] LABS: BUN/Creatinine Ratio 27 (6-26); Blood Urea Nitrogen 17 mg/dL (8-23); Calcium 8.4 mg/dL (8.6-10.3); Carbon Dioxide 28 mEq/L (23-29); Chloride 101 mEq/L (98-107); Glucose 158 mg/dL (70-105); Magnesium 2.1 mg/dL (1.6-2.6); Osmolality,Calculated 303 (280-300); Potassium 3.1 mEq/L (3.5-5.1); Sodium 144 mEq/L (136-145); eGFR For African Americans > 60 (> 60); eGFR For Non-African Americans > 60 (> 60)
[2019-03-19] MEDS: Budesonide/Formoterol 160/4.5 1 PUFF INH IH SCH ×2 (07:20→19:46)
[2019-03-19] MEDS: Nicotine 21 MG PATCH.TD24 TD SCH (09:15)
[2019-03-19] MEDS: Azithromycin 250 MG TABLET PO SCH (09:16)
[2019-03-19] MEDS: MethylPREDNISolone 40 MG/ML VIAL IVP SCH ×2 (09:16→20:32)
[2019-03-19] MEDS ORDERED: Isovue-370 500 ML BOTTLE IVP ONE (10:07)
--- NOTE | 2019-03-19 11:15 | Internal Med Progress Note ---
Hospitalist Progress Note - Encounter Date of Encounter: 03/19/19 Time of Encounter: 09:30 - Subjective Interval History: She reports marginal improvement in her breathing but complains of vague abdominal discomfort. Continues to deny any diarrhea. No fever overnight. Denies any new rash or joint pain. No neck stiffness. - Exam Vitals: Temp Pulse Resp BP Pulse Ox 97.3 F L 80 16 153/80 97 03/19/19 06:46 03/19/19 06:46 03/19/19 10:59 03/19/19 06:46 03/19/19 10:59 Exam: General: Alert and oriented, mild distress Cardiovascular:Normal S1 & S2, No JVD. Pulse regular. Lungs: Mostly clear to auscultation with scattered wheezing bilaterally. Abdomen:Soft, non-tender, no rigidity. Extremities:No deformity or swelling Neurological:Normal cognition and motor skills. Non-focal - Assessment and Plan (1) Acute exacerbation of chronic obstructive airways disease Current Visit: Yes Status: Acute Assessment and Plan: Failed outpatient therapy on clarithromycin and steroid No evidence of pneumonia on lung imaging continue azithromycin, IV solumedrolm and scheduled bronchodilator. respiratory viral panel pending smoking cessation emphasized (2) Lactic acidosis Current Visit: Yes Status: Acute Assessment and Plan: Unclear etiology, it was again elevated at 6.7 this morning she does not have much focal complaints but when prompted, she did admit to mi ld, generalized abdominal discomfort as she was not able to elaborate further ?ischemic colitis, will obtain CT A/P (3) Hypokalemia Current Visit: Yes Status: Acute Assessment and Plan: denies any diarrhea ?renal loss urine potassium 20.9 which is not very impressive, no evidence of acidosis on BMP continue to replete and monitor (4) Tobacco abuse Current Visit: No Status: Chronic Assessment and Plan: Nicotine replacement therapy (5) DVT prophylaxis Current Visit: Yes Status: Acute Assessment and Plan: Subcutaneous heparin - Time Spent with Patient Total time spent is greater than 50% in coordination of care (as documented) at patient's floor/unit and/or counseling patient: Greater than 35 minutes Plan of Care Discussed with: patient Internal Medicine: Result - Labs CBC & Chem 7: 03/19/19 06:39 03/19/19 06:39 Labs: Short CBC 03/19/19 Range/Units 06:39 WBC 23.8 H D (4.3-11.1) K/mcL Hgb 12.7 (11.5-15.4) g/dL Hct 38.9 (35.3-44.9) % Plt Count 386 (140-400) K/mcL Neutrophils # 18.6 H (1.6-8.9) K/mcL BMP 03/18/19 03/19/19 14:53 06:39 Sodium 141 144 Potassium 2.8 L 3.1 L Chloride 101 101 Carbon Dioxide 30 H 28 BUN 13 17 Creatinine 0.73 0.64 Glucose 148 H 158 H Calcium 8.3 L 8.4 L - ABG Interpretation ABG results: ABG ABG pH 7.48 pH Units (7.32-7.45) H 03/18/19 07:14 ABG pCO2 41 mmHg (35-45) 03/18/19 07:14 ABG pO2 86 mmHg (85-104) 03/18/19 07:14 ABG O2 Saturation 97 % (95-98) 03/18/19 07:14 Consult Discharge Plan - Plan Referrals: Remedios Sullivan [Primary Care Provider] -
[2019-03-19] MEDS ORDERED: Isovue-370 500 ML BOTTLE PO ONE (13:04)
[2019-03-19 15:54] LABS: Adenovirus Not Detected (Not Detect); Bordetella Pertussis Not Detected (Not Detect); Chlamydophila pneumoniae Not Detected (Not Detect); Coronavirus 229E Not Detected (Not Detect); Coronavirus HKU1 Not Detected (Not Detect); Coronavirus NL63 Not Detected (Not Detect); Coronavirus OC43 Not Detected (Not Detect); Human Metapneumovirus Not Detected (Not Detect); Human Rhinovirus/Enterovirus Not Detected (Not Detect); Influenza A Subtype 2009 H1 Not Detected (Not Detect); Influenza A Untypeable Not Detected (Not Detect); Influenza B Not Detected (Not Detect); Mycoplasma pneumoniae Not Detected (Not Detect); Parainfluenza Virus 1 Not Detected (Not Detect); Parainfluenza Virus 2 Not Detected (Not Detect); Parainfluenza Virus 3 Not Detected (Not Detect); Parainfluenza Virus 4 Not Detected (Not Detect); Respiratory Syncytial Virus Not Detected (Not Detect)
[2019-03-19] MEDS ORDERED: Sennosides/Docusate Sodium TABLET PO PRN (16:06)
[2019-03-19] MEDS: cefTRIAXone 1,000 MG in Water for inj. (sterile) 10 ML IVP SCH (16:46)
[2019-03-20] MEDS: Ipratropium/Albuterol Neb 3 ML IH SCH ×7 (00:04→23:36)
[2019-03-20 04:16] LABS: Hematocrit 36.6 % (35.3-44.9); Immature Granulocytes % 5.5 % (0-4); Lymphocytes % 10.3 %; Mean Corpuscular HGB Conc 32.8 g/dL (31.6-35.5); Mean Corpuscular Hemoglobin 29.9 pg (28.0-33.3); Mean Platelet Volume 10.2 fL (9.4-12.4); Monocytes % 4.5 %; Platelet Count 319 K/mcL (140-400); Red Blood Count 4.02 M/mcL (3.82-4.97); Red Cell Distribution Width 15.8 % (11.5-14.5); Segmented Neutrophils % 79.5 %; White Blood Count 23.1 K/mcL (4.3-11.1)
[2019-03-20 04:17] LABS: Basophils # 0.1 K/mcL (0.0-0.2); Basophils % 0.2 %; Lymphocytes # 2.4 K/mcL (0.6-4.6); Neutrophils # 18.4 K/mcL (1.6-8.9); Nucleated Red Blood Cells 0.1 /100 WBC (0)
[2019-03-20 04:35] LABS: BUN/Creatinine Ratio 40 (6-26); Blood Urea Nitrogen 21 mg/dL (8-23); Calcium 8.2 mg/dL (8.6-10.3); Carbon Dioxide 27 mEq/L (23-29); Chloride 101 mEq/L (98-107); Glucose 128 mg/dL (70-105); Osmolality,Calculated 291 (280-300); Potassium 3.7 mEq/L (3.5-5.1); Sodium 138 mEq/L (136-145); eGFR For African Americans > 60 (> 60); eGFR For Non-African Americans > 60 (> 60)
[2019-03-20 04:50] LABS: Platelet Estimate Normal (Normal); Reactive Lymphocytes Present (Not Present)
[2019-03-20] MEDS: Budesonide/Formoterol 160/4.5 1 PUFF INH IH SCH ×2 (07:18→19:47)
[2019-03-20] MEDS: *HR* Heparin 5,000 UNIT/ML VIAL SQ SCH ×3 (07:21→21:43)
[2019-03-20] MEDS: cefTRIAXone 1,000 MG in Water for inj. (sterile) 10 ML IVP SCH (10:03)
[2019-03-20] MEDS: Azithromycin 250 MG TABLET PO SCH (10:05)
[2019-03-20] MEDS: MethylPREDNISolone 40 MG/ML VIAL IVP SCH (10:05)
[2019-03-20] MEDS: Nicotine 21 MG PATCH.TD24 TD SCH (10:06)
[2019-03-20] MEDS: Acetaminophen 325 MG TABLET PO PRN (10:25)
[2019-03-20] MEDS: Ketorolac 15 MG/ML VIAL IVP PRN ×2 (10:25→20:07)
[2019-03-20] MEDS ORDERED: *HR* Labetalol 20 MG/4 ML SYRINGE IVP PRN (11:34)
--- NOTE | 2019-03-20 11:35 | Internal Med Progress Note ---
Hospitalist Progress Note - Encounter Date of Encounter: 03/20/19 Time of Encounter: 09:00 - Subjective Interval History: Reports improvement in her breathing since the admission. Feels bloated and constipated but denies any nausea/vomiting or dysuria. No fever overnight. - Exam Vitals: Temp Pulse Resp BP Pulse Ox 97.8 F 77 18 177/82 92 03/20/19 11:25 03/20/19 11:25 03/20/19 11:26 03/20/19 11:25 03/20/19 11:26 Exam: General: Alert and oriented, not in distress Cardiovascular:Normal S1 & S2, No JVD. Pulse regular. Lungs: Mostly clear to auscultation with minimal wheezing bilaterally. Abdomen:Soft, non-tender, no rigidity. Extremities:No deformity or swelling Neurological:Normal cognition and motor skills. Non-focal - Assessment and Plan (1) Acute exacerbation of chronic obstructive airways disease Current Visit: Yes Status: Acute Assessment and Plan: Failed outpatient therapy on clarithromycin and steroid No evidence of pneumonia on initial CTA of the lung but on CT abdo/pelvis yesterday, it did show worsening bibasilar infiltrates that the radiologist reported as atelectasis respiratory viral panel -ve given the clinical context of persistent leukocytosis and lactic acidosis, will treat as PNA and Rocephin was added yesterday continue Blaze/azithromycin. Will switch steroid to PO from tomorrow. Continue scheduled bronchodilator. smoking cessation emphasized (2) Pneumonia Current Visit: Yes Status: Acute Assessment and Plan: as above check legionellla/strep ag (3) Lactic acidosis Current Visit: Yes Status: Acute Assessment and Plan: Unclear etiology, finally improving after mIVF overight and the addition of Rocephin for presumed PNA CT -ve for ischemic colitis will continue IVF for today and monitor (4) Hypokalemia Current Visit: Yes Status: Acute Assessment and Plan: denies any diarrhea ?renal loss urine potassium 20.9 which is not very impressive, no evidence of acidosis on BMP continue to replete and monitor (5) Tobacco abuse Current Visit: No Status: Chronic Assessment and Plan: Nicotine replacement therapy (6) Hypertension Current Visit: Yes Status: Acute Assessment and Plan: Persistently elevated blood pressure noted. Will start Norvasc 5 mg daily. When necessary labetalol (7) DVT prophylaxis Current Visit: Yes Status: Acute Assessment and Plan: Subcutaneous heparin - Time Spent with Patient Total time spent is greater than 50% in coordination of care (as documented) at patient's floor/unit and/or counseling patient: 25 - 35 minutes Plan of Care Discussed with: patient Internal Medicine: Result - Labs CBC & Chem 7: 03/20/19 04:04 03/20/19 04:04 Labs: Short CBC 03/20/19 Range/Units 04:04 WBC 23.1 H (4.3-11.1) K/mcL Hgb 12.0 (11.5-15.4) g/dL Hct 36.6 (35.3-44.9) % Plt Count 319 (140-400) K/mcL Neutrophils # 18.4 H (1.6-8.9) K/mcL BMP 03/20/19 04:04 Sodium 138 Potassium 3.7 Chloride 101 Carbon Dioxide 27 BUN 21 Creatinine 0.52 L Glucose 128 H Calcium 8.2 L - ABG Interpretation ABG results: ABG ABG pH 7.48 pH Units (7.32-7.45) H 03/18/19 07:14 ABG pCO2 41 mmHg (35-45) 03/18/19 07:14 ABG pO2 86 mmHg (85-104) 03/18/19 07:14 ABG O2 Saturation 97 % (95-98) 03/18/19 07:14 - Impressions Impressions Abdomen/Pelvis CT 03/19/19 10:07 IMPRESSION: 1. Worsening bibasilar atelectasis. Component of pneumonia considered unlikely but should be excluded. 2. Hepatic steatosis. 3. Left adrenal adenoma 2 cm unchanged from 2016. 4. No acute infective or inflammatory process in the abdomen or pelvis. 5 no obstruction. D/ / Eric Pereira MD / Eric Pereira MD Interpreting Provider: Eric Pereira MD Consult Discharge Plan - Plan Referrals: Remedios Sullivan [Primary Care Provider] - (2) Pneumonia Qualifiers: Pneumonia type: due to unspecified organism Laterality: bilateral Lung location: lower lobe of lung Qualified Code(s): J18.1 - Lobar pneumonia, unspecified organism (6) Hypertension Qualifiers: Hypertension type: essential hypertension Qualified Code(s): I10 - Essential (primary) hypertension
[2019-03-20] MEDS: amLODIPine 5 MG TABLET PO SCH (17:30)
[2019-03-21] MEDS: Ipratropium/Albuterol Neb 3 ML IH SCH ×3 (04:35→11:21)
[2019-03-21 04:38] LABS: Basophils # 0.1 K/mcL (0.0-0.2); Basophils % 0.4 %; Hemoglobin 11.7 g/dL (11.5-15.4); Immature Granulocytes % 6.8 % (0-4); Lymphocytes % 20.2 %; Mean Corpuscular HGB Conc 32.5 g/dL (31.6-35.5); Mean Corpuscular Hemoglobin 29.5 pg (28.0-33.3); Mean Corpuscular Volume 90.9 fL (83.0-100.0); Mean Platelet Volume 10.6 fL (9.4-12.4); Monocytes # 1.8 K/mcL (0.0-1.3); Monocytes % 7.8 %; Neutrophils # 14.9 K/mcL (1.6-8.9); Nucleated Red Blood Cells 0.2 /100 WBC (0); Platelet Count 342 K/mcL (140-400); Red Blood Count 3.96 M/mcL (3.82-4.97); Red Cell Distribution Width 16.1 % (11.5-14.5); Segmented Neutrophils % 64.8 %
[2019-03-21 04:42] LABS: Lymphocytes # 4.7 K/mcL (0.6-4.6)
[2019-03-21 05:00] LABS: Alanine Aminotransferase 55 Units/L (7-52); Albumin/Globulin Ratio 1.3 (1.1-2.2); Alkaline Phosphatase 56 Units/L (34-104); Aspartate Amino Transferase 25 Units/L (13-39); BUN/Creatinine Ratio 40 (6-26); Bilirubin,Total 0.3 mg/dL (0.3-1.0); Blood Urea Nitrogen 22 mg/dL (8-23); Calcium 8.1 mg/dL (8.6-10.3); Carbon Dioxide 27 mEq/L (23-29); Chloride 99 mEq/L (98-107); Globulin 2.4 g/dL (2.4-3.5); Glucose 98 mg/dL (70-105); Osmolality,Calculated 289 (280-300); Potassium 3.8 mEq/L (3.5-5.1); Sodium 138 mEq/L (136-145); Total Protein 5.4 g/dL (6.4-8.9); eGFR For African Americans > 60 (> 60); eGFR For Non-African Americans > 60 (> 60)
[2019-03-21 05:13] LABS: Platelet Estimate Normal (Normal); Reactive Lymphocytes Present (Not Present)
[2019-03-21] MEDS: *HR* Heparin 5,000 UNIT/ML VIAL SQ SCH (06:30)
[2019-03-21] MEDS: Budesonide/Formoterol 160/4.5 1 PUFF INH IH SCH (07:27)
[2019-03-21 07:30] VITALS: BP 167/94
[2019-03-21] MEDS: cefTRIAXone 1,000 MG in Water for inj. (sterile) 10 ML IVP SCH (08:25)
[2019-03-21] MEDS: Azithromycin 250 MG TABLET PO SCH (08:26)
[2019-03-21] MEDS: amLODIPine 5 MG TABLET PO SCH (08:26)
[2019-03-21] MEDS: Nicotine 21 MG PATCH.TD24 TD SCH (08:27)
[2019-03-21] MEDS ORDERED: predniSONE 20 MG TABLET PO SCH (09:00)
[2019-03-21] MEDS: Ketorolac 15 MG/ML VIAL IVP PRN (09:15)
--- NOTE | 2019-03-21 09:50 | Discharge Summary ---
- NOTES TO OUTPATIENT PROVIDER Notes to Outpatient Provider: Follow-up with PCP as outpatient Orders not resulted at time of discharge: Pending orders 03/17/19 14:38 Culture,Blood [BC] Stat Date of Encounter: 03/21/19 Time of Encounter: 07:30 - Discharge Diagnosis (1) Acute exacerbation of chronic obstructive airways disease Priority: Primary Status: Acute (2) Pneumonia Priority: Secondary Status: Acute Qualifiers: Pneumonia type: due to unspecified organism Laterality: bilateral Lung location: lower lobe of lung Qualified Code(s): J18.1 - Lobar pneumonia, unspecified organism (3) Lactic acidosis Priority: Secondary Status: Acute (4) Hypokalemia Priority: Secondary Status: Acute (5) Tobacco abuse Priority: Secondary Status: Chronic (6) Hypertension Priority: Secondary Status: Acute Qualifiers: Hypertension type: essential hypertension Qualified Code(s): I10 - Essential (primary) hypertension (7) DVT prophylaxis Priority: Secondary Status: Acute Hospital course: Ms. Banks is a 64 year old female with history of COPD, anxiety/depression, tobacco use, who was admitted for COPD exacerbation. Although there was leukocytosis on presentation, she did not have any evidence of PNA on imaging hence was managed with azithromycin, steroid, and bronchodilator. Despite the treatment, she did not feel significantly better and also had worsening lactic acidosis hence further imaging was done. Although it was reported as worsening bibasilar atelectasis, given the clinical context, it was decided to treat her as PNA and Rocephin was added to the regime. She had clinical improvement after 3 days of IV Rocephin with O2 being weaned to room air (Despite persistent leukocytosis). She also underwent 6 min walk test that she passed successfully. She will complete the rest of the antibiotic course with Levaquin and tapering course of steroid/duoneb/symbicort was also given. Of note, she was supposed be taking Seroquel, sertraline, and PRN Vistaril for her psych condition and the refills for the meds were provided. Also, given her persistently elevated BP, norvasc 5mg was started as well. Discharge discussed with: patient, nurse - Time Spent with Patient Total time spent providing and/or coordinating discharge services: 33 mins - Discharge Medications Prescriptions: New Ipratropium/Albuterol Neb [Duoneb] 3 ml IH [id number] PRN #120 inhsol PRN Reason: Shortness Of Breath Polyethylene Glycol 3350 [MiraLAX] 17 gm PO DAILY #30 powd.pack Nicotine Patch [Nicoderm] 21 mg TD DAILY #14 patch.td24 amLODIPine [Norvasc] 5 mg PO DAILY #30 tablet predniSONE [PredniSONE] 40 mg PO DAILY #7 tablet Quetiapine Fumarate [Seroquel] 25 mg PO HS #30 tablet Budesonide/Formoterol 160/4.5 [Symbicort 160/4.5] 2 puff IH BIDR #1 inh Benzonatate [Tessalon] 200 mg PO TID PRN #60 capsule PRN Reason: Cough hydrOXYzine pamoate [Vistaril] 25 mg PO Q6HR PRN #30 capsule PRN Reason: Anxiety Sertraline [Zoloft] 25 mg PO DAILY #30 tablet levoFLOXacin [Levaquin] 750 mg PO DAILY #5 tablet Discontinued predniSONE [PredniSONE] 20 mg PO TID Clarithromycin [Biaxin] 500 mg PO BID Home Medications: Benzonatate [Tessalon] 200 mg PO TID PRN #60 capsule 03/21/19 [Rx] Budesonide/Formoterol 160/4.5 [Symbicort 160/4.5] 2 puff IH BIDR #1 inh 03/21/19 [Rx] Ipratropium/Albuterol Neb [Duoneb] 3 ml IH [id number] PRN #120 inhsol 03/21/19 [Rx] Nicotine Patch [Nicoderm] 21 mg TD DAILY #14 patch.td24 03/21/19 [Rx] Polyethylene Glycol 3350 [MiraLAX] 17 gm PO DAILY #30 powd.pack 03/21/19 [Rx] Quetiapine Fumarate [Seroquel] 25 mg PO HS #30 tablet 03/21/19 [Rx] Sertraline [Zoloft] 25 mg PO DAILY #30 tablet 03/21/19 [Rx] amLODIPine [Norvasc] 5 mg PO DAILY #30 tablet 03/21/19 [Rx] hydrOXYzine pamoate [Vistaril] 25 mg PO Q6HR PRN #30 capsule 03/21/19 [Rx] levoFLOXacin [Levaquin] 750 mg PO DAILY #5 tablet 03/21/19 [Rx] predniSONE [PredniSONE] 40 mg PO DAILY #7 tablet 03/21/19 [Rx] Allergies/Adverse Reactions: Allergy/AdvReac Type Severity Reaction Status Date / Time hydrocodone Allergy Mild Rash/Itchin Verified 03/17/19 15:14 g Date of admission: 03/19/19 15:27 Primary care physician: Remedios Sullivan - Constitutional Vitals: Temp Pulse Resp BP Pulse Ox 97.7 F 81 16 167/94 91 03/21/19 07:25 03/21/19 07:25 03/21/19 07:27 03/21/19 07:25 03/21/19 07:27 Exam: General: Alert and oriented, not in distress Cardiovascular:Normal S1 & S2, No JVD. Pulse regular. Lungs: Mostly clear to auscultation with minimal, scattered wheezing bilaterally. Abdomen:Soft, non-tender, no rigidity. Extremities:No deformity or swelling Neurological:Normal cognition and motor skills. Non-focal - Patient Status Disposition: Home, Self-Care Condition: Fair Functional capacity at discharge: independent ambulation Overall status at discharge: patient is progressing back to baseline - Discharge Instructions Instructions: Chronic Obstructive Pulmonary Disease (DC), Chronic Hypertension (DC), Pneumonia (DC) Follow Up With: Remedios Sullivan [Primary Care Provider] - - Diet and Activity Activity: resume usual activities as tolerated Diet: regular diet
== END 2019-03-21 13:04 | disposition home or self-care (01) | DRG 140 ==
LOC: EMEROOARM 13:48 → 2NENU 13:48 → SUATTDRO 03-18 00:05
PROVIDERS: ADMIT Internal Medicine Nephrology; ATTEND Internal Medicine